=== PATIENT | female | born 1965 | race Caucasian/White ===

== ENCOUNTER → 2017-03-05 | Outpatient (CLI) | payer OTHER ==
--- NOTE | 2017-03-05 10:12 | WOMENS IMAGING REPORT ---
EXAM DESCRIPTION: BILAT SCREENING MAMMO W/CAD COMPLETED DATE/TIME: 03/05/2017 9:32 am REASON FOR STUDY: ROUTINE SCREENING MAMMO, Z12.31 Z12.31 ENCNTR SCREEN MAMMOGRAM FOR MALIGNANT NEOP LASM OF CLEMENT COMPARISON: None. TECHNIQUE: Standard craniocaudal and mediolateral oblique views of each breast recorded using [employer] acquisition. LIMITATIONS: None. FINDINGS: No masses, calcifications or architectural distortion. No areas of suspicion. Read with the assistance of CAD. .[facility] - R2 Cenova Version 1.3 .[facility] - R2 Cenova Version 1.3 .[facility] - R2 Cenova Version 2.4 .[facility] - R2 Cenova Version 2.4 .[facility] - R2 Top [employer] Maker Version 9.2 IMPRESSION: NORMAL MAMMOGRAM. BIRADS 1. BREAST DENSITY: a. The breasts are almost entirely fatty. BIRAD: 1 NEGATIVE RECOMMENDATION: ROUTINE SCREENING COMMENT: The patient has been notified of the results by letter per SA requirements. Additional no tification policies are in place for contacting patient with suspicious or incomplete findings. Quality ID #[id number]: The [employer] recommends an annual screening mammogram for women aged 40 years or over. This facility utilizes a reminder system to ensure that all patients receive reminder letters, and/or direct phone calls for appointments. This includes reminders for routine scr eening mammograms, diagnostic mammograms, or other Breast Imaging Interventions when appropriate. Th is patient will be placed in the appropriate reminder system. The [employer] (ACR) has developed recommendations for screening MRI of the breast s in certain patient populations, to be used in conjunction with mammography. Breast MRI surveillanc e may be appropriate for women with more than 20% lifetime risk of developing breast cancer as deter mined by genetic testing, significant family history of the disease, or history of mantle radiation f or Hodgkins Disease. ACR Practice Guidelines 2008. TECHNICAL DOCUMENTATION: FINDING NUMBER: (1) ASSESSMENT: (1) JOB ID: [id number] [employer]- All Rights Reserved
== END ==
LOC: WI 07:09
PROVIDERS: ATTEND Family Medicine
DX: Z12.31 Encounter for screening mammogram for malignant neoplasm of breast (principal)
CPT/HCPCS: 77067; G0202

== ENCOUNTER 2019-09-19 15:16 | Emergency (ER) | payer OTHER ==
[2019-09-19] MEDS ORDERED: TETRACAINE HCL 0.5% OPH SOLN 4 ML OD ONE (15:30)
--- NOTE | 2019-09-19 15:33 | ER Document Report ---
ED Medical Screen (RME) - General Chief Complaint: Eye Injury Stated Complaint: EYE INJURY Time Seen by Provider: 09/19/19 15:28 Primary Care Provider: GORDON ARITA MD [Primary Care Provider] - Follow up as needed Mode of Arrival: Ambulatory Information source: Patient Notes: 54-year-old female presented to ED for complaint of injury to her left eye. She states she was in the process of moving and she was outside when she got smacked in the left eye with a branch. She states it feels like there is something under the left eyelid. She states that she can keep her eye open is not as painful as when she opens and closes her eyes. She denies use of contacts. She states she does have her regular glasses and the light is hurting her I said she has sunglasses over top of her normal glasses. Patient is alert oriented respirations regular nonlabored speaking in full sentences. I have greeted and performed a rapid initial assessment of this patient. A comprehensive ED assessment and evaluation of the patient, analysis of test results and completion of medical decision making process will be conducted by an additional ED providers. TRAVEL OUTSIDE OF THE [place] IN LAST 30 DAYS: No - Related Data Smoking: Non-smoker Frequency of alcohol use: None Drug Abuse: None Allergies/Adverse Reactions: Sulfa (Sulfonamide Antibiotics) Allergy (Verified 09/19/19 15:28) Past Medical History - Medical History Medical History: Other - Autoimmune - Past Medical History Cardiac Medical History: Reports: None Pulmonary Medical History: Reports: None Neurological Medical History: Reports: Hx Migraine Endocrine Medical History: Reports: None Renal/ Medical History: Reports: None Malignancy Medical History: Reports: None GI Medical History: Reports: None Musculoskeltal Medical History: Reports Hx Arthritis, Reports Hx Musculoskeletal Deformity, Reports Other - She states she has been told that she has decreased fluid Skin Medical History: Reports Hx MRSA Psychiatric Medical History: Reports: None Traumatic Medical History: Reports: None Infectious Medical History: Reports: None Surgical Hx: Negative Past Surgical History: Reports: None - Immunizations Hx Diphtheria, Pertussis, Tetanus Vaccination: Yes Physical Exam - Vital signs Vitals: Temp Pulse BP Pulse Ox 97.9 F 86 150/96 H 98 09/19/19 15:20 09/19/19 15:20 09/19/19 15:20 09/19/19 15:20 Course - Vital Signs Vital signs: Temp Pulse Resp BP Pulse Ox 97.9 F 86 150/96 H 98 09/19/19 15:20 09/19/19 15:20 09/19/19 15:20 09/19/19 15:20 Doctor's Discharge - Discharge Referrals: GORDON ARITA MD [Primary Care Provider] - Follow up as needed
--- NOTE | 2019-09-19 16:51 | ER Document Report ---
HPI - HPI Time Seen by Provider: 09/19/19 15:28 Pain Level: 5 Notes: Patient is a 54-year-old female who presents complaining of a branch hitting her left eye this morning. Patient states that she does have pain associated primarily when she is blinking. She otherwise does not wear contact lenses. She has not noticed any drainage. No other concerns or complaints at this time. No recent illness. Denies any headache, fever, neck pain, changes in vision/speech/mentation/hearing, URI, sore throat, chest pain, palpitations, syncope, cough, shortness of breath, wheeze, dyspnea, abdominal pain, nausea/vomiting/diarrhea, urinary retention, dysuria, hematuria, or rash. - ROS Systems Reviewed and Negative: Yes All other systems reviewed and negative - REPRODUCTIVE Reproductive: DENIES: : Past Medical History - General Information source: Patient - Social History Smoking Status: Unknown if Ever Smoked Chew tobacco use (# tins/day): No Frequency of alcohol use: None Drug Abuse: None Family History: Reviewed & Not Pertinent Patient has suicidal ideation: No Patient has homicidal ideation: No - Medical History Medical History: Other - Autoimmune - Past Medical History Cardiac Medical History: Reports: None Pulmonary Medical History: Reports: None Neurological Medical History: Reports: Hx Migraine Endocrine Medical History: Reports: None Renal/ Medical History: Reports: None Malignancy Medical History: Reports: None GI Medical History: Reports: None Musculoskeletal Medical History: Reports Hx Arthritis, Reports Hx Musculoskeletal Deformity, Reports Other - She states she has been told that she has decreased fluid Skin Medical History: Reports Hx MRSA Psychiatric Medical History: Reports: None Traumatic Medical History: Reports: None Infectious Medical History: Reports: None Surgical Hx: Negative Past Surgical History: Reports: None - Immunizations Hx Diphtheria, Pertussis, Tetanus Vaccination: Yes Vertical Provider Document - CONSTITUTIONAL Agree With Documented VS: Yes Notes: PHYSICAL EXAMINATION: GENERAL: Well-appearing, well-nourished and in no acute distress. A&Ox4 HEAD: Atraumatic, normocephalic. EYES: Pupils equal round and reactive to light, extraocular movements intact, sclera anicteric, conjunctiva left shows very mild episcleritis w/o discharge or matting. Non-tender to palp of the globe and eye itself. No surrounding erythema or swelling noted. Visual acuity 20/20 b/l and in Rt eye, 20/25 Lt (performed by myself at bedside with my own eye chart). Wood's lamp/flourescein: + corneal abrasion left eye. No laceration, ulceration, or gunjan sign noted. No obvious foreign body appreciated. ENT: EAC clear b/l. TM's intact b/l without erythema, fluid, or perforation. Nares patent and without discharge. oropharynx clear without exudates. No tonsilar hypertrophy or erythema. Moist mucous membranes. No sinus tenderness. Uvula midline. No palatine shift. No airway compromise. No drooling or hoarseness. NECK: Normal range of motion, supple without lymphadenopathy. No rigidity/meningismus. LUNGS: Breath sounds clear to auscultation bilaterally and equal. No wheezes rales or rhonchi. HEART: Regular rate and rhythm without murmurs, rubs, gallops. NEUROLOGICAL: Cranial nerves grossly intact. Normal speech, normal gait. PSYCH: Normal mood, normal affect. SKIN: Warm, Dry, normal turgor, no rashes or lesions noted. - INFECTION CONTROL TRAVEL OUTSIDE OF THE [place] IN LAST 30 DAYS: No Course - Re-evaluation Re-evalutation: 09/19/19 16:49 Patient is an afebrile, well-hydrated, 54-year-old female who presents to the emergency department with corneal abrasion to her left eye. Vitals are acceptable without significant tachycardia, tachypnea, or hypoxia. PE is otherwise unremarkable. Patient is nontoxic-appearing and is able to tolerate p.o. without difficulty. No labs or imaging warranted. Tetracaine provided immediate relief of symptoms (although temporary). Low suspicion for any retained corneal or lid foreign body, deep space infection including orbital cellulitis/abscess, acute glaucoma, penetrating globe injury, retinal detachment, meningitis, sepsis, fracture, compartment syndrome. I will send home with a prescription for erythromycin ointment to use as directed. Conservative measures otherwise for symptoms with proper handwashing. Recheck with your PCM in 3-5 days. Consider follow-up with ophthalmology. Return to the ED with any worsening/concerning symptoms otherwise as reviewed in discharge. Patient is in agreement. - Vital Signs Vital signs: Temp Pulse Resp BP Pulse Ox 97.9 F 86 150/96 H 98 09/19/19 15:28 09/19/19 15:20 09/19/19 15:20 09/19/19 15:28 Procedures - Eye Procedure Left Eye Irrigated w/ Saline (ccs): 20 Alcaine Drops Administered: Yes - tetracaine Fluorescein applied: Left Slit lamp used: No Discharge - Discharge Clinical Impression: Corneal abrasion, left Qualifiers: Encounter type: initial encounter Qualified Code(s): S05.02XA - Injury of conjunctiva and corneal abrasion without foreign body, left eye, initial encounter Condition: Stable Disposition: HOME, SELF-CARE Instructions: Corneal Abrasion ([facility]) Additional Instructions: Keep eyes clean Avoid scratching/touching eyes Wash hands regularly Use eye drops as directed Maintain adequate fluid intake tylenol/ibuprofen as needed over the counter cold medication as needed for symptoms F/u: with your PCM in 2-3 days for a recheck Consider consult with Ophthalmology for ongoing/worsening symptoms Return to the ED with any worsening symptoms and/or development of fever, headache, changes in vision, eye pain, worsening eye redness, redness around the eyes, purulent discharge, sore throat, facial swelling, neck pain/stiffness, chest pain, palpitations, syncope, shortness of breath, trouble breathing, abdominal pain, n/v/d, blood in stool/urine, dysuria, or other worsening symptoms that are concerning to you. Prescriptions: Erythromycin Base [Erythromycin Oph 1 gm Oint Ud] 1 applic OP QID #1 tube Forms: Elevated Blood Pressure Referrals: GORDON ARITA MD [Primary Care Provider] - Follow up as needed HERMELINDO MCCRACKEN MD [ACTIVE STAFF] - Follow up as needed
[2019-09-19 17:11] VITALS: BP 148/87
== END 2019-09-19 17:09 | disposition home or self-care (01) ==
LOC: ER 15:16
DX: S05.02XA Injury of conjunctiva and corneal abrasion without foreign body, left eye, initial encounter (principal); H57.12 Ocular pain, left eye; X58.XXXA Exposure to other specified factors, initial encounter
CPT/HCPCS: 99283

== ENCOUNTER 2019-09-20 10:06 | Emergency (ER) | payer OTHER ==
--- NOTE | 2019-09-20 10:28 | ER Document Report ---
ED Medical Screen (RME) - General Chief Complaint: Eye Injury Stated Complaint: EYE INJURY Time Seen by Provider: 09/20/19 10:23 Primary Care Provider: GORDON ARITA MD [Primary Care Provider] - Follow up as needed Mode of Arrival: Ambulatory Information source: Patient Notes: 54-year-old female presented to ED for complaint of pain to the eye at the throat and cough. She states she was seen yesterday and everything they told her to watch for is happening and is worse. She states they gave her medications yesterday is not helping her. She states the pain is such that she cannot stand and she needs to be reevaluated. Patient is alert and oriented. She states yesterday she was in the yard getting ready to move when a branch injured her eye. I have greeted and performed a rapid initial assessment of this patient. A comprehensive ED assessment and evaluation of the patient, analysis of test results and completion of medical decision making process will be conducted by an additional ED providers. TRAVEL OUTSIDE OF THE [place] IN LAST 30 DAYS: No - Related Data Allergies/Adverse Reactions: Sulfa (Sulfonamide Antibiotics) Allergy (Verified 09/20/19 10:24) Past Medical History Neurological Medical History: Reports: Hx Migraine Musculoskeltal Medical History: Reports Hx Arthritis, Reports Hx Musculoskeletal Deformity Skin Medical History: Reports Hx MRSA - Immunizations Hx Diphtheria, Pertussis, Tetanus Vaccination: Yes Physical Exam - Vital signs Vitals: Temp Pulse Resp BP Pulse Ox 98.1 F 69 18 166/108 H 97 09/20/19 10:10 09/20/19 10:10 09/20/19 10:10 09/20/19 10:10 09/20/19 10:10 Course - Vital Signs Vital signs: Temp Pulse Resp BP Pulse Ox 98.1 F 69 18 166/108 H 97 09/20/19 10:10 09/20/19 10:10 09/20/19 10:10 09/20/19 10:10 09/20/19 10:10 Doctor's Discharge - Discharge Referrals: GORDON ARITA MD [Primary Care Provider] - Follow up as needed
--- NOTE | 2019-09-20 12:20 | ER Document Report ---
HPI - HPI Pain Level: 3 Notes: Patient is a 54-year-old female who presents complaining of a branch hitting her left eye yesterday. I eval'd her yesterday and dx'd with corneal abrasion. She has noticed some mild swelling to the upper eyelid which is new for her. Otherwise the pain is in the same place. Patient states that she does have pain associated primarily when she is blinking. She otherwise does not wear contact lenses. She has not noticed any drainage. No other concerns or complaints at this time. No recent illness. Denies any headache, fever, neck pain, changes in vision/speech/mentation/hearing, URI, sore throat, chest pain, palpitations, syncope, cough, shortness of breath, wheeze, dyspnea, abdominal pain, nausea/vomiting/diarrhea, urinary retention, dysuria, hematuria, or rash. - ROS Systems Reviewed and Negative: Yes All other systems reviewed and negative - EENT EENT: REPORTS: Eye problems - REPRODUCTIVE Reproductive: DENIES: : <MANSOOR DOZIER - Last Filed: 09/20/19 14:01> <MARCIO PIKE - Last Filed: 09/20/19 19:25> - HPI Time Seen by Provider: 09/20/19 10:23 Past Medical History - General Information source: Patient - Social History Smoking Status: Former Smoker Family History: Reviewed & Not Pertinent Patient has suicidal ideation: No Patient has homicidal ideation: No Neurological Medical History: Reports: Hx Migraine Musculoskeletal Medical History: Reports Hx Arthritis, Reports Hx Musculoskeletal Deformity Skin Medical History: Reports Hx MRSA - Immunizations Hx Diphtheria, Pertussis, Tetanus Vaccination: Yes <MANSOOR DOZIER - Last Filed: 09/20/19 14:01> Vertical Provider Document - CONSTITUTIONAL Agree With Documented VS: Yes Notes: PHYSICAL EXAMINATION: GENERAL: Well-appearing, well-nourished and in no acute distress. A&Ox4 HEAD: Atraumatic, normocephalic. EYES: Pupils equal round and reactive to light, extraocular movements intact, sclera anicteric, conjunctiva left shows very mild episcleritis w/o discharge or matting. Non-tender to palp of the globe and eye itself. + mild swelling left upper eyelid. No surrounding erythema or swelling otherwise noted. Wood's lamp-slit lamp/flourescein: + corneal abrasion left eye. No laceration, ulceration, or gunjan sign noted. No obvious foreign body appreciated. ENT: Nares patent and without discharge. oropharynx clear without exudates. No tonsilar hypertrophy or erythema. Moist mucous membranes. No sinus tenderness. Uvula midline. No palatine shift. No airway compromise. No drooling or hoarseness. NECK: Normal range of motion, supple without lymphadenopathy. No rigidity/meningismus. LUNGS: Breath sounds clear to auscultation bilaterally and equal. No wheezes rales or rhonchi. HEART: Regular rate and rhythm without murmurs, rubs, gallops. NEUROLOGICAL: Cranial nerves grossly intact. Normal speech, normal gait. PSYCH: Normal mood, normal affect. SKIN: Warm, Dry, normal turgor, no rashes or lesions noted. - INFECTION CONTROL TRAVEL OUTSIDE OF THE [place] IN LAST 30 DAYS: No <MANSOOR DOZIER - Last Filed: 09/20/19 14:01> Course - Re-evaluation Re-evalutation: 09/20/19 Patient is an afebrile, well-hydrated, 54-year-old female who presents to the emergency department with corneal abrasion to her left eye. Vitals are acceptable without significant tachycardia, tachypnea, or hypoxia. PE is otherwise unremarkable. Patient is nontoxic-appearing and is able to tolerate p.o. without difficulty. No labs or imaging warranted. Tetracaine provided immediate relief of symptoms (although temporary). Dr. Pike also eval'd patient and slit lamp was otherwise unremarkable for foreign body. Low suspicion for any retained corneal or lid foreign body, deep space infection including orbital cellulitis/abscess, acute glaucoma, penetrating globe injury, retinal detachment, meningitis, sepsis, fracture, compartment syndrome. I will send home with a prescription for erythromycin ointment to use as directed. Conserv ative measures otherwise for symptoms with proper handwashing. Recheck with your PCM in 3-5 days. F/u with ophthalmology tomorrow. Return to the ED with any worsening/concerning symptoms otherwise as reviewed in discharge. Patient is in agreement. - Vital Signs Vital signs: Temp Pulse Resp BP Pulse Ox 98.1 F 69 18 166/108 H 97 09/20/19 10:24 09/20/19 10:10 09/20/19 10:24 09/20/19 10:10 09/20/19 10:24 <MANSOOR DOZIER - Last Filed: 09/20/19 14:01> - Re-evaluation Re-evalutation: 09/20/19 19:23 I did personally see and examined this patient in conjunction with the physician library media assistant Mansoor Dozier. Patient has a rather large corneal abrasion to the left eye but no evidence of foreign body or ulceration after a branch hit her eye 2 days ago. There is some mild erythema to the upper lid without any exudate. Patient has no pain with range of motion fraction, no evidence of globe rupture. Patient will be treated with topical ketorolac drops, continue topical erythromycin and start oral Keflex. - Vital Signs Vital signs: Temp Pulse Resp BP Pulse Ox 97.6 F 71 18 162/100 H 100 09/20/19 14:20 09/20/19 14:20 09/20/19 10:24 09/20/19 14:20 09/20/19 14:20 <MARCIO PIKE - Last Filed: 09/20/19 19:25> Procedures - Eye Procedure Left Eye Irrigated w/ Saline (ccs): 20 Alcaine Drops Administered: Yes - tetracaine Fluorescein applied: Left Slit lamp used: Yes <MANSOOR DOZIER - Last Filed: 09/20/19 14:01> Discharge <MANSOOR DOZIER - Last Filed: 09/20/19 14:01> <MARCIO PIKE - Last Filed: 09/20/19 19:25> - Discharge Clinical Impression: Corneal abrasion, left Qualifiers: Encounter type: initial encounter Qualified Code(s): S05.02XA - Injury of conjunctiva and corneal abrasion without foreign body, left eye, initial encounter Condition: Stable Disposition: HOME, SELF-CARE Instructions: Corneal Abrasion ([facility]) Additional Instructions: Keep eyes clean Avoid scratching/touching eyes Wash hands regularly Use eye drops as directed Maintain adequate fluid intake tylenol/ibuprofen as needed over the counter cold medication as needed for symptoms F/u: with your PCM in 2-3 days for a recheck Schedule consult with ophthalmology tomorrow for evaluation* Return to the ED with any worsening symptoms and/or development of fever, headache, changes in vision, eye pain, worsening eye redness, redness around the eyes, purulent discharge, sore throat, facial swelling, neck pain/stiffness, chest pain, palpitations, syncope, shortness of breath, trouble breathing, abdominal pain, n/v/d, blood in stool/urine, dysuria, or other worsening symptoms that are concerning to you. Prescriptions: Cephalexin Monohydrate [Keflex 500 mg Capsule] 500 mg PO TID #21 capsule Forms: Elevated Blood Pressure Referrals: GORDON ARITA MD [NO LOCAL MD] - Follow up as needed HERMELINDO MCCRACKEN MD [ACTIVE STAFF] - Follow up tomorrow
[2019-09-20] MEDS ORDERED: KETOROLAC TROMETHAMINE 0.45% 4 DROP/0.4 ML DROPERETTE OS ONE (14:00)
[2019-09-20] MEDS ORDERED: CEPHALEXIN 500 MG CAPSULE PO ONE (14:01)
[2019-09-20 14:21] VITALS: BP 162/100
== END 2019-09-20 14:21 | disposition home or self-care (01) ==
LOC: ER 10:06
DX: S05.02XA Injury of conjunctiva and corneal abrasion without foreign body, left eye, initial encounter (principal); W22.8XXA Striking against or struck by other objects, initial encounter; Z87.891 Personal history of nicotine dependence; H15.102 Unspecified episcleritis, left eye
CPT/HCPCS: 99282